=== PATIENT | male | born 1980 | race Caucasian/White ===

== ENCOUNTER 2018-01-25 04:26 | Emergency (ER) | payer MEDICAID ==
[~2018-01-25] VITALS: Ht 170.2 cm; Wt 86.6 kg
[~2018-01-25 04:26] MED LIST: CLIN-80 PO; NO HOME MEDS
[2018-01-25] MEDS ORDERED: ALBU6.7H INH (04:37)
[2018-01-25] MEDS ORDERED: dexamethasone 4mg tablet PO ONE (04:40)
[2018-01-25] MEDS ORDERED: diphenhydrAMINE 25 MG/10 ML UD oral solution PO ONE (04:40)
[2018-01-25 04:48] VITALS: BP 113/65
== END 2018-01-25 04:49 | disposition home or self-care (01) ==
LOC: ER 04:27
DX: J20.9 Acute bronchitis, unspecified (principal); F12.10 Cannabis abuse, uncomplicated; F15.10 Other stimulant abuse, uncomplicated; Z87.891 Personal history of nicotine dependence; Z88.2 Allergy status to sulfonamides
CPT/HCPCS: 99283; J8540; Q0163

== ENCOUNTER 2018-02-19 05:39 | Inpatient (IN) | payer MEDICAID ==
[~2018-02-19] VITALS: Ht 172.7 cm; Wt 73.1 kg
[~2018-02-19 05:39] MED LIST changes: +ALBU6.7H INH
[2018-02-19] MEDS ORDERED: piperacillin/tazo 3.375gm/50ml 50 ML IV ONE (06:30)
[2018-02-19] MEDS ORDERED: ketorolac trometh. 30mg/ml inj. IV ONE (06:30)
[2018-02-19] MEDS ORDERED: vancomycin/NS 1 GM ADD-VANTAGE 250 ML IV ONE (06:30)
[2018-02-19] MEDS ORDERED: normal saline 1000ML IV soln IV ONE (06:30)
[2018-02-19 07:01] LABS: BASOPHILS % (AUTO) 0.2 % (0-1); EOSINOPHILS # (AUTO) 0.1 X10'3 (0-0.9); HEMATOCRIT 38.2 % (42.0-52.0); LYMPHOCYTES # (AUTO) 1.3 X10'3 (1.1-4.8); LYMPHOCYTES % (AUTO) 8.5 % (21-51); MEAN CORPUSCULAR HEMOGLOBIN 28.3 PG (27.0-31.0); MEAN CORPUSCULAR VOLUME 83.2 FL (78-98); MEAN PLATELET VOLUME 7.7 FL (7.4-10.4); MONOCYTES # (AUTO) 0.8 X10'3 (0-0.9); MONOCYTES % (AUTO) 5.5 % (2-12); NEUTROPHILS # (AUTO) 12.6 X10'3 (1.8-7.7); NEUTROPHILS % (AUTO) 84.8 % (42-75); PLATELET COUNT 249 X10'3 (140-440); RED BLOOD COUNT 4.58 X10'6 (4.70-6.10); WHITE BLOOD COUNT 14.8 X10'3 (4.5-11.0)
[2018-02-19 07:16] LABS: ALANINE AMINOTRANSFERASE 38 U/L (12-78); ALBUMIN 3.5 G/DL (3.4-5.0); ALBUMIN/GLOBULIN RATIO 0.7 (1.1-1.5); ALKALINE PHOSPHATASE 79 IU/L (46-116); ANION GAP 8 (8-16); ASPARTATE AMINO TRANSFERASE 21 U/L (10-37); BILIRUBIN,TOTAL 0.7 MG/DL (0.1-1.0); BLOOD UREA NITROGEN 20 MG/DL (7-18); BUN/CREATININE RATIO 15.9 (5.4-32.0); CALCIUM 8.7 MG/DL (8.5-10.1); CHLORIDE 100 MMOL/L (99-107); CREATININE 1.26 MG/DL (0.60-1.10); GLUCOSE 94 MG/DL (70-104); MAGNESIUM 1.9 MG/DL (1.5-2.4); POTASSIUM 3.9 MMOL/L (3.5-5.1); SODIUM 135 MMOL/L (135-145); TOTAL CARBON DIOXIDE 26.9 MMOL/L (24-32); TOTAL PROTEIN 8.2 G/DL (6.4-8.2); eGFR 64 ML/MIN
[2018-02-19] MEDS ORDERED: iohexol 300mg/ml 100ml inj. ONE (08:45)
[2018-02-19 10:10] LABS: CLARITY,URINE CLEAR (Clear); COLOR,URINE YELLOW (Yellow); GLUCOSE, URINE NEGATIVE (Neg); KETONES,URINE TRACE mg/dl (Neg); LEUKOCYTE ESTERASE ,URINE NEGATIVE (Neg); NITRITES, URINE NEGATIVE (Neg); OCCULT BLOOD,URINE NEGATIVE (Neg); PH,URINE 6.5 (4.8-8.0); PROTEIN,URINE TRACE mg/dl (Neg); UROBILINOGEN,URINE 0.2 E.U/dL (0.2-1.0)
[2018-02-19 10:11] LABS: UA COLLECTION TYPE CLN CATCH MIDSTREAM
[2018-02-19 10:16] LABS: BACTERIA,URINE FEW /HPF (Neg); MUCUS STRANDS FEW /LPF (Neg); RBC,URINE 0-2 /HPF (0-2); SPERM FEW /HPF (NEGATIVE); SQUAMOUS EPITHELIAL CELL,UR FEW /LPF (FEW); WBC,URINE 0-4 /HPF (0-4)
[2018-02-19] MEDS ORDERED: mag hydrox/Alum hydrox/simeth 30ml oral suspension PO PRN (11:35)
[2018-02-19] MEDS ORDERED: magnesium 4gm in 100ml NS 100 ML IV PRN (11:35)
[2018-02-19] MEDS ORDERED: acetaminophen 325mg tablet PO PRN ×2 (11:35)
[2018-02-19] MEDS ORDERED: potassium Cl 40MEQ/NS 500ml 500 ML IV PRN ×2 (11:35)
[2018-02-19] MEDS ORDERED: magnesium hydroxide 30ml (MOM) UD suspension PO PRN (11:35)
[2018-02-19] MEDS ORDERED: magnesium 2GM in 50ml NS 50 ML IV PRN (11:35)
[2018-02-19] MEDS ORDERED: HYDROcodone/acetaminophen 10/325mg tab PO PRN (11:35)
[2018-02-19] MEDS ORDERED: magnesium Cl slow-release 64mg tablet PO PRN (11:35)
[2018-02-19] MEDS ORDERED: ondansetron/PF 4mg/2ml inj IV PRN (11:35)
[2018-02-19] MEDS ORDERED: LORazepam 1 MG tablet PO PRN (11:35)
[2018-02-19] MEDS ORDERED: HYDROcodone/acetaminophen 5mg/325mg tablet PO PRN (11:35)
[2018-02-19] MEDS ORDERED: LORazepam 2 mg/ml vial IV PRN (11:35)
[2018-02-19] MEDS ORDERED: potassium Cl 20 mEq SR tablet PO PRN ×2 (11:35)
[2018-02-19 12:17] LABS: URINE AMPHETAMINE SCREEN POSITIVE (Neg); URINE BARBITUATE SCREEN NEGATIVE (Neg); URINE BENZODIAZEPINES SCREEN NEGATIVE (Neg); URINE CANNABINOID SCREEN NEGATIVE (Neg); URINE COCAINE SCREEN NEGATIVE (Neg); URINE METHADONE SCREEN NEGATIVE (Neg); URINE OPIATE SCREEN NEGATIVE (Neg); URINE PHENCYCLIDINE SCREEN NEGATIVE (Neg)
[2018-02-19] MEDS: normal saline 1000ml 1,000 ML IV SCH ×2 (12:27→17:46)
[2018-02-19 17:59] VITALS: BP 112/69
[2018-02-19 19:00] VITALS: BP 121/66
[2018-02-19] MEDS: vancomycin/NS 1 GM ADD-VANTAGE 250 ML IV SCH (20:19)
[2018-02-19] MEDS: heparin, porcine 5000 units/ml vial SQ SCH (20:20)
[2018-02-19] MEDS ORDERED: temazepam 15mg capsule PO PRN (21:00)
[2018-02-19 23:30] VITALS: BP 106/58
[2018-02-20 06:16] LABS: BASOPHILS % (AUTO) 0.6 % (0-1); EOSINOPHILS # (AUTO) 0.1 X10'3 (0-0.9); EOSINOPHILS % (AUTO) 1.3 % (0-6); HEMATOCRIT 33.6 % (42.0-52.0); HEMOGLOBIN 11.2 g/dl (14.0-17.9); LYMPHOCYTES # (AUTO) 1.4 X10'3 (1.1-4.8); LYMPHOCYTES % (AUTO) 20.3 % (21-51); MEAN CORPUSCULAR HGB CONC 33.3 % (33.0-36.5); MEAN CORPUSCULAR VOLUME 84.1 FL (78-98); MEAN PLATELET VOLUME 8.3 FL (7.4-10.4); MONOCYTES # (AUTO) 0.7 X10'3 (0-0.9); MONOCYTES % (AUTO) 10.2 % (2-12); NEUTROPHILS # (AUTO) 4.8 X10'3 (1.8-7.7); NEUTROPHILS % (AUTO) 67.6 % (42-75); PLATELET COUNT 188 X10'3 (140-440); RED BLOOD COUNT 3.99 X10'6 (4.70-6.10); RED CELL DISTRIBUTION WIDTH 14.2 % (11.5-14.5); WHITE BLOOD COUNT 7.1 X10'3 (4.5-11.0)
[2018-02-20 06:37] LABS: ALANINE AMINOTRANSFERASE 33 U/L (12-78); ALBUMIN 2.5 G/DL (3.4-5.0); ALBUMIN/GLOBULIN RATIO 0.7 (1.1-1.5); ALKALINE PHOSPHATASE 59 IU/L (46-116); ANION GAP 7 (8-16); ASPARTATE AMINO TRANSFERASE 19 U/L (10-37); BILIRUBIN,TOTAL 0.3 MG/DL (0.1-1.0); BLOOD UREA NITROGEN 21 MG/DL (7-18); BUN/CREATININE RATIO 22.3 (5.4-32.0); CHLORIDE 108 MMOL/L (99-107); CREATININE 0.94 MG/DL (0.60-1.10); GLUCOSE 118 MG/DL (70-104); POTASSIUM 4.3 MMOL/L (3.5-5.1); SODIUM 139 MMOL/L (135-145); TOTAL CARBON DIOXIDE 24.3 MMOL/L (24-32); TOTAL PROTEIN 6.3 G/DL (6.4-8.2); eGFR 90 ML/MIN
[2018-02-20 07:01] VITALS: BP 106/61
[2018-02-20] MEDS: vancomycin/NS 1 GM ADD-VANTAGE 250 ML IV SCH (07:56)
[2018-02-20] MEDS: heparin, porcine 5000 units/ml vial SQ SCH (07:56)
[2018-02-20] MEDS: normal saline 1000ml 1,000 ML IV SCH (07:59)
[2018-02-20] MEDS ORDERED: K and/or MAG REPLACEMENT MC SCH (08:00)
[2018-02-20] MEDS ORDERED: CLIN-5 PO (08:15)
[2018-02-20 11:30] VITALS: BP 118/68
[2018-02-20] MEDS ORDERED: VANCOMYCIN LEVEL IV ONE (19:30)
== END 2018-02-20 12:28 | disposition home or self-care (01) | DRG 720 ==
LOC: ER 05:39 → ED HOLD 11:16 → MED 3N 17:40
PROVIDERS: ADMIT Internal Medicine; ATTEND Internal Medicine
PROC: BP2K1ZZ Computerized Tomography (CT Scan) of Left Forearm using Low Osmolar Contrast (ICD-10-PCS; principal; 2018-02-19)
PROC: BP2F1ZZ Computerized Tomography (CT Scan) of Left Upper Arm using Low Osmolar Contrast (ICD-10-PCS; 2018-02-19)
DX: A41.9 Sepsis, unspecified organism (principal); F11.10 Opioid abuse, uncomplicated; D64.9 Anemia, unspecified; S61.201A Unspecified open wound of left index finger without damage to nail, initial encounter; F15.10 Other stimulant abuse, uncomplicated; L03.114 Cellulitis of left upper limb; F12.90 Cannabis use, unspecified, uncomplicated; Z88.2 Allergy status to sulfonamides; Z79.899 Other long term (current) drug therapy
CPT/HCPCS: 36415; 71045; 73120; 73201; 80053; 80305; 81001; 83605; 83735; 84145; 85025; 87040; 87070; 93005; 93971; 96365; 96366; 96368; 96375; 99285; J1644; J1885; J2543; J3370; J7030; Q9967

== ENCOUNTER 2019-01-04 02:21 | Emergency (ER) | payer MEDICAID ==
[~2019-01-04] VITALS: Ht 172.7 cm; Wt 71.0 kg
[~2019-01-04 02:21] MED LIST changes: +CLIN-5 PO; -CLIN-80 PO; -NO HOME MEDS
[2019-01-04 02:23] VITALS: BP 157/77
[2019-01-04] MEDS ORDERED: HYDR25SU32 RC (02:59)
--- NOTE | 2019-01-04 03:06 | NUR ---
Patient non-compliant with MD, refused rectal exam.
== END 2019-01-04 03:15 | disposition home or self-care (01) ==
LOC: ER 02:21
DX: K64.9 Unspecified hemorrhoids (principal); K62.5 Hemorrhage of anus and rectum; F12.90 Cannabis use, unspecified, uncomplicated; F15.90 Other stimulant use, unspecified, uncomplicated; F11.90 Opioid use, unspecified, uncomplicated; Z88.2 Allergy status to sulfonamides
CPT/HCPCS: 99282

== ENCOUNTER 2019-04-08 00:11 | Inpatient (IN) | payer MEDICAID ==
[~2019-04-08] VITALS: Ht 172.7 cm; Wt 86.5 kg
[~2019-04-08 00:11] MED LIST changes: +HYDR25SU32 RC
[2019-04-08] MEDS ORDERED: vancomycin/NS 1 GM ADD-VANTAGE 250 ML IV ONE (01:50)
[2019-04-08] MEDS ORDERED: ondansetron/PF 4mg/2ml inj IV ONE (01:50)
[2019-04-08] MEDS ORDERED: HYDROmorphone 1 mg/ml syringe IV ONE (01:50)
[2019-04-08] MEDS ORDERED: normal saline 1000ML IV soln IV ONE (01:50)
[2019-04-08] MEDS ORDERED: piperacillin/tazo 3.375gm/50ml 50 ML IV ONE (01:50)
[2019-04-08] MEDS ORDERED: iohexol 300mg/ml 100ml inj. ONE (02:23)
[2019-04-08 02:37] LABS: BASOPHILS # (AUTO) 0.1 X10'3 (0-0.2); LYMPHOCYTES # (AUTO) 1.5 X10'3 (1.1-4.8); MEAN CORPUSCULAR HEMOGLOBIN 23.8 PG (27.0-31.0); MEAN CORPUSCULAR HGB CONC 32.1 g/dL (33.0-36.5)
[2019-04-08 02:39] LABS: BASOPHILS % (AUTO) 0.6 % (0-1); EOSINOPHILS % (AUTO) 0.2 % (0-6); LYMPHOCYTES % (AUTO) 12.2 % (21-51); MEAN CORPUSCULAR VOLUME 73.9 FL (78-98); MONOCYTES # (AUTO) 1.2 X10'3 (0-0.9); MONOCYTES % (AUTO) 9.7 % (2-12); NEUTROPHILS # (AUTO) 9.6 X10'3 (1.8-7.7); NEUTROPHILS % (AUTO) 77.3 % (42-75); PLATELET COUNT 251 X10'3 (140-440); RED BLOOD COUNT 3.79 X10'6 (4.70-6.10); RED CELL DISTRIBUTION WIDTH 16.6 % (11.5-14.5); WHITE BLOOD COUNT 12.4 X10'3 (4.5-11.0)
[2019-04-08 02:51] LABS: PARTIAL THROMBOPLASTIN TIME 26 SECONDS (22-32)
[2019-04-08 02:54] LABS: ANION GAP 7 (8-16); BILIRUBIN,TOTAL 0.4 MG/DL (0.1-1.0); BLOOD UREA NITROGEN 20 MG/DL (7-18); BUN/CREATININE RATIO 16.1 (5.4-32.0); CALCIUM 8.4 MG/DL (8.5-10.1); CHLORIDE 103 MMOL/L (99-107); CREATININE 1.24 MG/DL (0.60-1.10); GLUCOSE 92 MG/DL (70-104); POTASSIUM 3.9 MMOL/L (3.5-5.1); SODIUM 137 MMOL/L (135-145); TOTAL CARBON DIOXIDE 26.8 MMOL/L (24-32); TOTAL PROTEIN 7.3 G/DL (6.4-8.2); eGFR 65 ML/MIN
[2019-04-08 02:55] LABS: ALANINE AMINOTRANSFERASE 34 U/L (12-78); ALBUMIN 3.3 G/DL (3.4-5.0); ALBUMIN/GLOBULIN RATIO 0.8 (1.1-1.5); ALKALINE PHOSPHATASE 69 IU/L (46-116); ASPARTATE AMINO TRANSFERASE 24 U/L (10-37)
[2019-04-08 03:08] LABS: ANISOCYTOSIS 1+; HYPOCHROMASIA 1+; MICROCYTOSIS 1+; PLATELET ESTIMATE NORMAL
[2019-04-08] MEDS ORDERED: mag hydrox/Alum hydrox/simeth 30ml oral suspension PO PRN (04:15)
[2019-04-08] MEDS ORDERED: HYDROcodone/acetaminophen 5mg/325mg tablet PO PRN (04:15)
[2019-04-08] MEDS ORDERED: magnesium hydroxide 30ml (MOM) UD suspension PO PRN (04:15)
[2019-04-08] MEDS ORDERED: HYDROcodone/acetaminophen 10/325mg tab PO PRN (04:15)
[2019-04-08] MEDS ORDERED: acetaminophen 325mg tablet PO PRN (04:15)
[2019-04-08] MEDS ORDERED: ondansetron/PF 4mg/2ml inj IV PRN (04:15)
[2019-04-08] MEDS: normal saline 1000ml 1,000 ML IV SCH ×3 (04:28→04:52)
--- NOTE | 2019-04-08 04:52 | NUR ---
Patient in room . I have received report from Fahad and had the opportunity to ask questions and assume patient care.
[2019-04-08 05:06] VITALS: BP 127/74
[2019-04-08 06:00] VITALS: BP 117/70
--- NOTE | 2019-04-08 06:15 | NUR ---
Problems reprioritized. Patient report given, questions answered & plan of care reviewed with Dinh.
[2019-04-08] MEDS ORDERED: clindamycin 600mg/D5W 50ml 50 ML IV SCH (08:00)
[2019-04-08] MEDS: heparin, porcine 5000 units/ml vial SQ SCH ×2 (08:31→20:26)
[2019-04-08] MEDS: piperacillin/tazo 3.375gm/50ml 50 ML IV SCH ×2 (10:58→18:36)
[2019-04-08 11:11] VITALS: BP 131/89
[2019-04-08 15:00] VITALS: BP 112/62
[2019-04-08] MEDS: vancomycin inj 1,250 MG in NS 250ml IV soln IV SCH (15:31)
[2019-04-08 18:18] VITALS: BP 119/72
--- NOTE | 2019-04-08 18:30 | NUR ---
Problems reprioritized. Patient report given, questions answered & plan of care reviewed with Boaz LA.
--- NOTE | 2019-04-08 18:32 | NUR ---
Patient in room PCU 3010. I have received report from BESSIE Tao and had the opportunity to ask questions and assume patient care.
[2019-04-08] MEDS: guaiFENesin ER 600mg tablet PO SCH (20:25)
[2019-04-08 22:00] VITALS: BP 103/62
[2019-04-09 02:00] VITALS: BP 104/63
[2019-04-09] MEDS: vancomycin inj 1,250 MG in NS 250ml IV soln IV SCH (02:06)
[2019-04-09] MEDS: piperacillin/tazo 3.375gm/50ml 50 ML IV SCH ×2 (03:44→10:38)
[2019-04-09 06:00] VITALS: BP 100/70
--- NOTE | 2019-04-09 06:00 | NUR ---
Patient in room PCU 3010. I have received report from Aysha LA and had the opportunity to ask questions and assume patient care.
--- NOTE | 2019-04-09 06:05 | NUR ---
Problems reprioritized. Patient report given, questions answered & plan of care reviewed with BESSIE Tao.
[2019-04-09] MEDS: guaiFENesin ER 600mg tablet PO SCH (07:17)
[2019-04-09] MEDS: heparin, porcine 5000 units/ml vial SQ SCH (07:18)
[2019-04-09 11:11] VITALS: BP 121/76
[2019-04-09] MEDS ORDERED: CLIN150C2 PO (11:43)
[2019-04-09] MEDS ORDERED: IBUP-1986 PO (11:43)
--- NOTE | 2019-04-09 13:15 | NUR ---
Pt DCd home with family. New meds delivered to Pts bedside. IV removed, canula intact. Belongings gathered and sent home with Pt. Discharge paperwork gone over with Pt, Nurse allowed Pt to ask questions and answered them. Pt walked self down to lobby with family to private vehicle.
[2019-04-10] MEDS ORDERED: VANCOMYCIN LEVEL IV ONE (02:30)
== END 2019-04-09 13:10 | disposition home or self-care (01) | DRG 383 ==
LOC: ER 00:11 → PCU 3S 05:35 → CMPBEDREQ 05:40
PROVIDERS: ADMIT Internal Medicine; ATTEND Family Medicine
PROC: BP2T1ZZ Computerized Tomography (CT Scan) of Right Upper Extremity using Low Osmolar Contrast (ICD-10-PCS; principal; 2019-04-08)
DX: L03.113 Cellulitis of right upper limb (principal); D64.9 Anemia, unspecified; F15.10 Other stimulant abuse, uncomplicated; N28.9 Disorder of kidney and ureter, unspecified; F12.10 Cannabis abuse, uncomplicated; Z86.14 Personal history of Methicillin resistant Staphylococcus aureus infection; Z88.2 Allergy status to sulfonamides; Z80.1 Family history of malignant neoplasm of trachea, bronchus and lung; Z71.51 Drug abuse counseling and surveillance of drug abuser
CPT/HCPCS: 36415; 71045; 73201; 80053; 83605; 83735; 84145; 85025; 85610; 85730; 87040; 87070; 93005; 96365; 96367; 96375; 99285; G0378; J1170; J1644; J2405; J2543; J3370; J3490; J7030; Q9967

== ENCOUNTER 2019-06-11 05:48 | Emergency (ER) | payer MEDICAID ==
[~2019-06-11] VITALS: Ht 172.7 cm; Wt 80.5 kg
[~2019-06-11 05:48] MED LIST changes: -ALBU6.7H INH; -CLIN-5 PO; -HYDR25SU32 RC; +IBUP-1986 PO
[2019-06-11 05:55] VITALS: BP 110/73
[2019-06-11] MEDS ORDERED: CLIN-96 PO (07:15)
== END 2019-06-11 07:32 | disposition home or self-care (01) ==
LOC: ER 05:49
DX: L03.114 Cellulitis of left upper limb (principal); F12.90 Cannabis use, unspecified, uncomplicated; F15.90 Other stimulant use, unspecified, uncomplicated; F11.90 Opioid use, unspecified, uncomplicated; Z86.14 Personal history of Methicillin resistant Staphylococcus aureus infection; Z98.890 Other specified postprocedural states; Z88.2 Allergy status to sulfonamides; Z79.899 Other long term (current) drug therapy
CPT/HCPCS: 87070; 87077; 87186; 99283

== ENCOUNTER 2019-10-05 03:29 | Emergency (ER) | payer MEDICAID ==
[~2019-10-05] VITALS: Ht 172.7 cm; Wt 81.8 kg
[~2019-10-05 03:29] MED LIST changes: +CLIN-90 PO
[2019-10-05] MEDS ORDERED: MUPI22OI30 TOP (03:56)
[2019-10-05 04:03] VITALS: BP 120/54
== END 2019-10-05 04:05 | disposition home or self-care (01) ==
LOC: ER 03:30
DX: R21 Rash and other nonspecific skin eruption (principal); F15.90 Other stimulant use, unspecified, uncomplicated; F12.90 Cannabis use, unspecified, uncomplicated; F11.90 Opioid use, unspecified, uncomplicated; Z98.890 Other specified postprocedural states; Z86.14 Personal history of Methicillin resistant Staphylococcus aureus infection; Z88.2 Allergy status to sulfonamides; Z79.899 Other long term (current) drug therapy
CPT/HCPCS: 99283

== ENCOUNTER 2020-01-16 03:31 | Emergency (ER) | payer MEDICAID, OTHER ==
[~2020-01-16] VITALS: Ht 172.7 cm; Wt 81.0 kg
[2020-01-16 03:39] VITALS: BP 118/71
[2020-01-16] MEDS ORDERED: CLIN-90 PO (04:25)
--- NOTE | 2020-01-16 04:44 | NUR ---
ORDER FROM MD TO CANCEL LABORATORY STUDIES
== END 2020-01-16 04:51 | disposition home or self-care (01) ==
LOC: ER 03:32
DX: L03.115 Cellulitis of right lower limb (principal); K62.5 Hemorrhage of anus and rectum; F15.10 Other stimulant abuse, uncomplicated; F12.90 Cannabis use, unspecified, uncomplicated; F11.90 Opioid use, unspecified, uncomplicated; Z98.890 Other specified postprocedural states; Z86.14 Personal history of Methicillin resistant Staphylococcus aureus infection; Z88.2 Allergy status to sulfonamides; Z79.899 Other long term (current) drug therapy
CPT/HCPCS: 99283

== ENCOUNTER 2022-02-23 21:31 | Emergency (ER) | payer MEDICAID ==
[~2022-02-23] VITALS: Ht 172.7 cm; Wt 81.8 kg
[~2022-02-23 21:31] MED LIST changes: -CLIN-90 PO; +CLIN-97 PO
[2022-02-23 23:54] VITALS: BP 129/75
[2022-02-24 00:12] LABS: D-DIMER 0.91 MG/L FEU (0-0.50)
--- NOTE | 2022-02-24 01:13 | NUR ---
report given to Hyun
== END 2022-02-24 02:45 | disposition home or self-care (01) ==
LOC: ER 21:32
DX: I80.221 Phlebitis and thrombophlebitis of right popliteal vein (principal); M25.561 Pain in right knee; F12.90 Cannabis use, unspecified, uncomplicated; F15.90 Other stimulant use, unspecified, uncomplicated; F11.90 Opioid use, unspecified, uncomplicated; Z86.14 Personal history of Methicillin resistant Staphylococcus aureus infection; Z98.890 Other specified postprocedural states; Z88.2 Allergy status to sulfonamides; Z79.2 Long term (current) use of antibiotics
CPT/HCPCS: 36415; 73564; 85379; 93971; 99285

== ENCOUNTER 2024-01-11 05:51 | Emergency (ER) | payer MEDICAID ==
[~2024-01-11] VITALS: Ht 172.7 cm; Wt 81.8 kg
[2024-01-11] MEDS ORDERED: diatr meglu/diatrizoate 30ml oral sol.-(3 dose) bottle PO SCH (06:20)
[2024-01-11] MEDS ORDERED: normal saline 1000ML IV soln IVB ONE (06:20)
[2024-01-11 06:59] VITALS: BP 94/65; PULSE 61; RESP 14; TEMP 97.9; O2SAT 97
[2024-01-11 07:49] LABS: ALBUMIN 4.1 G/DL (3.4-5.0); ANION GAP 8 (8-16); BLOOD UREA NITROGEN 20 MG/DL (7-18); CALCIUM 8.9 MG/DL (8.5-10.1); CHLORIDE 106 MMOL/L (99-107); CREATININE 1.05 MG/DL (0.60-1.10); GLUCOSE 101 MG/DL (70-104); POTASSIUM 4.4 MMOL/L (3.5-5.1); SODIUM 139 MMOL/L (135-145); TOTAL CARBON DIOXIDE 24.7 MMOL/L (24-32); eCRCL 87 ML/MIN; eGFR 77 ML/MIN
== END 2024-01-11 08:16 | disposition left against medical advice (07) ==
LOC: ER 05:52
DX: K40.90 Unilateral inguinal hernia, without obstruction or gangrene, not specified as recurrent (principal); F12.90 Cannabis use, unspecified, uncomplicated; F15.90 Other stimulant use, unspecified, uncomplicated; Z88.2 Allergy status to sulfonamides; Z79.2 Long term (current) use of antibiotics
CPT/HCPCS: 36415; 80048; 99283; J7030

== ENCOUNTER 2024-07-27 07:57 | Day surgery (SDC) | payer BC, MEDICAID ==
[2024-07-22 11:57] LABS: ALBUMIN 3.9 G/DL (3.4-5.0); ALKALINE PHOSPHATASE 58 IU/L (46-116); BLOOD UREA NITROGEN 22 MG/DL (7-18); BUN/CREATININE RATIO 23.2 (10.0-20.0); CALCIUM 9.1 MG/DL (8.5-10.1); CHLORIDE 105 MMOL/L (99-107); CREATININE 0.95 MG/DL (0.60-1.10); PRE OP ALT 39 U/L (30-65); PRE OP ANION GAP 11 (8-16); PRE OP AST 27 U/L (10-37); PRE OP BILIRUB, TOTAL 0.5 MG/DL (0.0-1.0); PRE OP GLUCOSE 81 MG/DL (70-104); PRE OP POTASSIUM 4.4 MMOL/L (3.4-5.1); PRE OP SODIUM 139 MMOL/L (135-145); TOTAL CARBON DIOXIDE 23.5 MMOL/L (24-32); eGFR 86 ML/MIN
[~2024-07-27] VITALS: Ht 172.7 cm; Wt 96.4 kg
[2024-07-27] VITALS (17 sets, daily range): BP systolic 99–128; BP diastolic 46–78; PULSE 63–82; RESP 10–16; TEMP 97.6; O2SAT 93–98
[2024-07-27] MEDS: cefazolin 2gm/D5W 100mL 100 ML IV ONE (05:30)
[~2024-07-27 07:57] MED LIST changes: -CLIN-97 PO; -IBUP-1986 PO; +NO HOME MEDS
[2024-07-27] MEDS ORDERED: morphine 2 MG/ML inj. syringe IV PRN (08:25)
[2024-07-27] MEDS ORDERED: fentaNYL/PF 50MCG/1 ML 2ML syringe IV PRN ×2 (08:25)
[2024-07-27] MEDS ORDERED: labetalol 20mg/4ml (5mg/ml) syringe IV PRN (08:25)
[2024-07-27] MEDS ORDERED: hydrALAZINE 20mg/ml inj. IV PRN (08:25)
[2024-07-27] MEDS: famotidine 20mg tablet PO ONE (08:59)
[2024-07-27] MEDS: ringers solution, lacted 1,000 ML IV SCH ×2 (08:59→14:22)
[2024-07-27 09:27] LABS: BASOPHILS % (AUTO) 0.4 % (0-1); EOSINOPHILS % (AUTO) 0.4 % (0-6); HEMATOCRIT 43.1 % (42.0-52.0); HEMOGLOBIN 14.6 g/dl (14.0-17.9); LYMPHOCYTES # (AUTO) 1.8 X10'3 (1.1-4.8); LYMPHOCYTES % (AUTO) 34.8 % (21-51); MEAN CORPUSCULAR HGB CONC 33.7 g/dL (33.0-36.5); MEAN CORPUSCULAR VOLUME 88.8 FL (78-98); MEAN PLATELET VOLUME 8.6 FL (7.4-10.4); MONOCYTES # (AUTO) 0.4 X10'3 (0-0.9); MONOCYTES % (AUTO) 8.1 % (2-12); NEUTROPHILS # (AUTO) 2.9 X10'3 (1.8-7.7); NEUTROPHILS % (AUTO) 56.3 % (42-75); PLATELET COUNT 156 X10'3 (140-440); RED BLOOD COUNT 4.86 X10'6 (4.70-6.10); RED CELL DISTRIBUTION WIDTH 13.9 % (11.5-14.5); WHITE BLOOD COUNT 5.2 X10'3 (4.5-11.0)
[2024-07-27] MEDS ORDERED: BUPIVAcaine 2.5mg/ml inj 50ml vial (contains preservative) ONE (09:56)
[2024-07-27] MEDS ORDERED: LIDOcaine 1% (10mg/ml)w/preservative inj. 20ml MDV ONE (09:56)
[2024-07-27] MEDS ORDERED: BUPIVACAINE liposomal/PF 13.3 MG/ML vial IM ONE (09:56)
[2024-07-27] MEDS ORDERED: sevoflurane 250ml liquid IH ONE (11:25)
[2024-07-27] MEDS ORDERED: fentaNYL/PF 50MCG/1 ML 2ML syringe ONE ×2 (11:29→13:08)
[2024-07-27] MEDS ORDERED: midazolam 1 mg/ML 2ml injection ONE (11:29)
[2024-07-27] MEDS ORDERED: rocuronium 10mg/ml inj IV ONE ×2 (11:30→11:31)
[2024-07-27] MEDS ORDERED: propofol inj 20 ML IV ONE (11:30)
[2024-07-27] MEDS ORDERED: LIDOcaine 2% (20mg/ml) 5ml vial ONE (11:30)
[2024-07-27] MEDS ORDERED: ondansetron/PF 4mg/2ml inj ONE (11:31)
[2024-07-27] MEDS ORDERED: acetaminophen 1,000mg/100ml IV 100 ML IV ONE (11:31)
[2024-07-27] MEDS: LIDOcaine 1% 30ml preserv. free vial SQ ONE (12:25)
[2024-07-27] MEDS ORDERED: glycopyrrolate 0.2mg/ml inj ONE (13:08)
[2024-07-27] MEDS ORDERED: neostigmine methylsulfate 1 MG/ML 10ml vial ONE (13:08)
--- NOTE | 2024-07-27 13:27 | NUR ---
Received from OR via [facility] TO RR 5, accompanied by Anesthesiologist DR NATION and report given by Anesthesiologist. PT PRESENTS ON 6L VIA MASK WITH SPO2 AT 98%, VSS. PT IS AROUSABLE TO VOICE, RR EVEN AND UNLABORED. NO S/S OF DISTRESS NOTED. 3 ABD BANDAIDS ARE CDI, LR RUNNING THRU PIV.
[2024-07-27] MEDS: morphine 4 MG/ML inj SYRINge IV PRN (13:49)
[2024-07-27] MEDS: ondansetron/PF 4mg/2ml inj IV PRN (14:16)
--- NOTE | 2024-07-27 15:42 | NUR ---
patient was able to urinate 110mls in urinal. bladder scanned with <30ml in bladder. ok to go home.
[2024-07-27] MEDS: HYDROcodone/acetaminophen 5mg/325mg tablet PO PRN (15:54)
--- NOTE | 2024-07-27 16:17 | NUR ---
PT HAS MET D/C CRITERIA. IV D/C'D. VSS. I HAVE REVIEWED D/C INSTRUCTIONS WITH PATIENT AND PATIENT DAD, LILIAN AND BOTH HAVE VERBALIZED UNDERSTANDING OF INSTRUCTIONS. ALL QUESTIONS, COMMENTS, AND CONCERNS WERE ANSWERED AT THIS TIME. 3 ABD LAP SITES WITH BANDAIDS REMAIN CDI, NO S/S OF BLEEDING AND PT STATES TOLERABLE 4/10 ABD PAIN. PT WAS ABLE TO URINATE 110MLS IN URINAL, BLADDERSCANNED WITH LESS THAN 25MLS IN BLADDER. OK TO D/C PER MD ORDERS. PT WAS ABLE TO GET DRESSED WITH ASSISTANCE AND AMBULATED TO WHEELCHAIR WITHOUT LOSS OF BALANCE. PT WAS WHEELED OUT TO PRIVATE VEHICLE AND TRANSFERRED INTO VEHICLE WITHOUT INCIDENT. PATIENT D/C HOME WITH ALL BELONGINGS.
== END 2024-07-27 16:17 | disposition home or self-care (01) ==
LOC: PAS 07:57
PROVIDERS: ATTEND Surgery
DX: K40.20 Bilateral inguinal hernia, without obstruction or gangrene, not specified as recurrent (principal); K42.0 Umbilical hernia with obstruction, without gangrene; D17.6 Benign lipomatous neoplasm of spermatic cord; E66.3 Overweight; I25.2 Old myocardial infarction; Z87.891 Personal history of nicotine dependence; Z68.32 Body mass index [BMI] 32.0-32.9, adult
CPT/HCPCS: 36415; 49592; 49650; 80053; 82948; 85025; 93005; C1781; J0131; J0690; J1100; J2250; J2270; J2405; J2704; J2710; J3010; J3490; J7030; J7120; S2900; Z7506; Z7508; Z7512; A4215; A4618; C9290

== ENCOUNTER 2024-08-27 10:30 | Emergency (ER) | payer BC | END 2024-08-27 11:04 | disposition left against medical advice (07) | LOC: ER 10:31 | DX: R10.9 Unspecified abdominal pain (principal); Z53.21 Procedure and treatment not carried out due to patient leaving prior to being seen by health care provider ==